=== PATIENT | female | born 1970 | race Caucasian/White ===

== ENCOUNTER 2016-09-21 19:28 | Observation (INO) | payer BC ==
[~2016-09-21] VITALS: Ht 172.7 cm; Wt 68.4 kg
[~2016-09-21 19:28] MED LIST: AMOXICILLIN500 M1 PO; ASCORBIC ACID250 MG PO; CELEXA20 MG PO; CIPRO500 MG PO; CITALOPRAM HBR20 MG PO; CLONAZEPAM0.5 MG PO; CYMBALTA60 MG PO; FLONASE16 G1 BOTH NARES; IMITREX100 MG PO; KEFLEX500 MG PO; KLONOPIN0.5 M1 PO; MOTRIN600 MG PO; MOTRIN800 MG PO; NORCO 5/3251 TABLET PO; OXYCODONE-APAP1 EACH PO; PERCOCET 5/31 TABLET PO; PYRIDIUM100 MG PO; SUDAFED 12-HOU120 MG PO; TOPAMAX50 MG PO; TRAMADOL HCL50 MG PO; TYLENOL EXTRA500 MG PO; VITAMIN B-150 MG PO; VITAMIN D-3 401 EACH PO
[2016-09-21 21:06] LABS: EOSINOPHIL (%) 2.9 % (0-5); EOSINOPHIL COUNT 0.1 K/uL (0-0.3); HEMATOCRIT 38.9 % (36.0-46.0); IMMATURE GRANULOCYTE (%) 0.2 % (0.0-0.7); IMMATURE GRANULOCYTE COUNT 0.1 K/uL; LYMPHOCYTE COUNT 0.5 K/uL (1.0-2.8); MCH 31.3 PG (29.0-34.0); MCV 89.4 FL (83-99); MEAN PLAT.VOLUME 11.2 uM^3 (9.5-12.4); MONOCYTE (%) 5.6 % (3-12); MONOCYTE COUNT 0.3 K/uL (0-0.8); NEUTROPHIL (%) 81.1 % (45-76); NEUTROPHIL COUNT 3.9 K/uL (1.8-6.4); PLATELET COUNT 195 K/uL (156-360); RBC DIS.WIDTH-CV 12.2 % (11.8-14.6); RED BLOOD COUNT 4.35 M/uL (3.80-5.20); WHITE BLOOD COUNT 4.8 K/uL (4.1-10.2)
[2016-09-21 21:09] LABS: CHLORIDE 108 mEq/L (99-109); POTASSIUM 3.9 mEq/L (3.7-5.4); SODIUM 138 mEq/L (136-147)
[2016-09-21 21:11] LABS: GLUCOSE 110 mg/dL (70-99)
[2016-09-21 21:12] LABS: ANION GAP 12 MEQ/L (2-14)
[2016-09-21 21:13] LABS: TOTAL BILIRUBIN 0.9 mg/dL (0.0-1.0)
[2016-09-21 21:14] LABS: ALKALINE PHOSPHATASE 60 IU/L (3-129); GFR ESTIMATE (CALCULATED) > 59 mL/min/
[2016-09-21 21:16] LABS: UREA NITROGEN (BUN) 9 mg/dL (9-23)
[2016-09-21 21:18] LABS: LIPASE 11 U/L (1.0-51.0)
[2016-09-21] MEDS ORDERED: GABAPENTIN300 MG PO (23:42)
[2016-09-21] MEDS ORDERED: MIRTAZAPINE15 MG PO (23:42)
[2016-09-21] MEDS ORDERED: CITALOPRAM HBR20 MG PO (23:43)
[2016-09-21] MEDS ORDERED: PROMETHAZINE HC25 M1 PO (23:43)
[2016-09-21] MEDS ORDERED: CLONAZEPAM0.5 MG PO (23:43)
[2016-09-22] VITALS (12 sets, daily range): BP systolic 85–117; BP diastolic 50–74
[2016-09-22 01:12] LABS: ADD MIUA? NO; BILIRUBIN NEGATIVE; BLOOD NEGATIVE; COLOR YELLOW ((YELLOW)); GLUCOSE (STRIP) NEGATIVE; KETONES 40; LEUKOCYTES NEGATIVE; NITRITE NEGATIVE; PH, URINE 5.5 (5-8); PROTEIN (STRIP) NEGATIVE; SPECIFIC GRAVITY 1.015 (1.000-1.030); UROBILINOGEN 0.2 MG/DL (0.2-1.0)
[2016-09-22 01:55] LABS: C DIFF TOXIN NEGATIVE (NEGATIVE)
[2016-09-22 02:14] LABS: PROBE CHECK PASS; SPECIMEN PROCESSING CONTROL PASS
[2016-09-22] MEDS ORDERED: BUTALB-APAP-CA1 EACH PO (11:35)
[2016-09-23 04:16] VITALS: BP 91/52
[2016-09-23 06:42] LABS: ANION GAP 5 MEQ/L (2-14); CHLORIDE 114 MEQ/L (99-109); GFR ESTIMATE (CALCULATED) > 59 mL/min/; GLUCOSE 72 mg/dL (70-99); POTASSIUM 3.6 MEQ/L (3.7-5.4); SAMPLE HEMOLYSIS CHECK 0; SAMPLE ICTERIC CHECK 0; SAMPLE LIPEMIA CHECK 0; SODIUM 144 MEQ/L (136-147); UREA NITROGEN (BUN) 4 mg/dL (9-23)
[2016-09-23 08:44] VITALS: BP 105/62; BP 111/69
[2016-09-23 11:29] VITALS: BP 102/65
[2016-09-23 13:32] LABS: INTERNAL CONTROL VALID? YES
[2016-09-23] MEDS ORDERED: BENTYL20 MG PO (15:36)
[2016-09-23] MEDS ORDERED: LOPERAMIDE2 MG PO (15:36)
[2016-09-23 16:00] VITALS: BP 97/59
== END 2016-09-23 17:38 | disposition home or self-care (01) ==
LOC: EME 19:28 → 5WEST 23:45 → EDOF 23:45 → 5WEST 09-22 00:50
PROVIDERS: Emergency Medicine; Physician Assistant
DX: K52.9 Noninfective gastroenteritis and colitis, unspecified (principal); R51 Headache; R11.2 Nausea with vomiting, unspecified; R07.9 Chest pain, unspecified; R42 Dizziness and giddiness; H93.293 Other abnormal auditory perceptions, bilateral
CPT/HCPCS: 71010; 74176; 80048; 80053; 81003; 83605; 83630; 83690; 84484; 84702; 85025; 87177; 87329; 87493; 87506; 99281; 99285; C9113; G0378; J1200; J1650; J1885; J2270; J2405; J2765; J7030

== ENCOUNTER 2017-04-01 09:37 | Emergency (ER) | payer BC ==
[~2017-04-01] VITALS: Ht 172.7 cm; Wt 63.0 kg
[~2017-04-01 09:37] MED LIST changes: +BENTYL20 MG PO; +BUTALB-APAP-CA1 EACH PO; +GABAPENTIN300 MG PO; +LOPERAMIDE2 MG PO; +MIRTAZAPINE15 MG PO; +PROMETHAZINE HC25 M1 PO
[2017-04-01 10:35] LABS: HEMATOCRIT 40.5 % (36.0-46.0); MCH 30.7 PG (29.0-34.0); MCHC 33.1 G/DL (30.0-36.0); MCV 92.7 FL (83-99); MEAN PLAT.VOLUME 10.9 uM^3 (9.5-12.4); PLATELET COUNT 196 K/uL (156-360); RBC DIS.WIDTH-CV 12.2 % (11.8-14.6); RBC DIS.WIDTH-SD 41.3 % (39-53); RED BLOOD COUNT 4.37 M/uL (3.80-5.20); WHITE BLOOD COUNT 7.4 K/uL (4.1-10.2)
[2017-04-01 10:45] LABS: CHLORIDE 105 mEq/L (99-109); POTASSIUM 3.6 mEq/L (3.7-5.4); SODIUM 137 mEq/L (136-147)
[2017-04-01 10:46] LABS: GLUCOSE 120 mg/dL (70-99)
[2017-04-01 10:48] LABS: ANION GAP 10 MEQ/L (2-14)
[2017-04-01 10:50] LABS: GFR ESTIMATE (CALCULATED) > 59 mL/min/
[2017-04-01 10:51] LABS: UREA NITROGEN (BUN) 10 mg/dL (9-23)
[2017-04-01 11:34] LABS: ADD MIUA? NO; BILIRUBIN NEGATIVE; BLOOD NEGATIVE; COLOR STRAW ((YELLOW)); GLUCOSE (STRIP) NEGATIVE; KETONES NEGATIVE; LEUKOCYTES NEGATIVE; NITRITE NEGATIVE; PROTEIN (STRIP) NEGATIVE; SPECIFIC GRAVITY 1.005 (1.000-1.030); UROBILINOGEN 0.2 MG/DL (0.2-1.0)
[2017-04-01] MEDS ORDERED: FIORICET 50-301 EACH PO (13:36)
[2017-04-01 13:50] VITALS: BP 110/75
== END 2017-04-01 13:51 | disposition home or self-care (01) ==
LOC: EME 09:37
PROVIDERS: Nurse Practitioner Family
DX: G43.909 Migraine, unspecified, not intractable, without status migrainosus (principal); B34.9 Viral infection, unspecified; E87.2 Acidosis; R73.9 Hyperglycemia, unspecified
CPT/HCPCS: 71020; 80048; 81003; 83605; 85027; 87040; 99281; 99285; J1200; J1885; J2765; J7030

== ENCOUNTER 2017-07-01 08:30 | Emergency (ER) | payer BC ==
[~2017-07-01] VITALS: Ht 172.7 cm; Wt 59.1 kg
[~2017-07-01 08:30] MED LIST changes: +FIORICET 50-301 EACH PO
[2017-07-01 11:35] LABS: HEMATOCRIT 34.4 % (36.0-46.0); MCH 31.2 PG (29.0-34.0); MCHC 34.6 G/DL (30.0-36.0); MCV 90.3 FL (83-99); MEAN PLAT.VOLUME 10.8 uM^3 (9.5-12.4); PLATELET COUNT 195 K/uL (156-360); RBC DIS.WIDTH-CV 12.5 % (11.8-14.6); RBC DIS.WIDTH-SD 41.5 % (39-53); RED BLOOD COUNT 3.81 M/uL (3.80-5.20); WHITE BLOOD COUNT 3.8 K/uL (4.1-10.2)
[2017-07-01 11:47] LABS: CHLORIDE 114 mEq/L (99-109); POTASSIUM 3.5 mEq/L (3.7-5.4); SODIUM 142 mEq/L (136-147)
[2017-07-01 11:49] LABS: GLUCOSE 93 mg/dL (70-99)
[2017-07-01 11:50] LABS: ANION GAP 8 MEQ/L (2-14)
[2017-07-01 11:51] LABS: TOTAL BILIRUBIN 0.5 mg/dL (0.0-1.0)
[2017-07-01 11:52] LABS: ALKALINE PHOSPHATASE 52 IU/L (3-129)
[2017-07-01 11:53] LABS: GFR ESTIMATE (CALCULATED) > 59 mL/min/
[2017-07-01 11:54] LABS: UREA NITROGEN (BUN) 9 mg/dL (9-23)
[2017-07-01 14:07] LABS: ADD MIUA? NO; BILIRUBIN NEGATIVE; BLOOD NEGATIVE; COLOR STRAW ((YELLOW)); GLUCOSE (STRIP) NEGATIVE; KETONES NEGATIVE; LEUKOCYTES NEGATIVE; NITRITE NEGATIVE; PROTEIN (STRIP) NEGATIVE; SPECIFIC GRAVITY 1.004 (1.000-1.030); UCUL ADDED? NO; UROBILINOGEN 0.2 MG/DL (0.2-1.0)
[2017-07-01 14:30] LABS: AMPHETAMINE NEGATIVE (500 ng/mL); BARBITURATES NEGATIVE (200 ng/mL); BENZODIAZEPINES NEGATIVE (150 ng/mL); COCAINE NEGATIVE (150 ng/mL); INTERNAL CONTROLS VALID? YES; METHADONE NEGATIVE (200 ng/mL); METHAMPHETAMINE NEGATIVE (500 ng/mL); OPIATES (MORPHINE) NEGATIVE (100 ng/mL); OXYCODONE NEGATIVE (100 ng/mL); PHENCYCLIDINE NEGATIVE (25 ng/mL); PROPOXYPHENE NEGATIVE (300 ng/mL); THC CANNABINOIDS NEGATIVE (50 ng/mL); TRICYCLIC ANTIDEPRESSANTS NEGATIVE (300 ng/mL)
[2017-07-01] MEDS ORDERED: MOTRIN600 MG PO (14:38)
[2017-07-01] MEDS ORDERED: ZOFRAN ODT4 MG PO (14:38)
[2017-07-01 15:08] VITALS: BP 102/59
== END 2017-07-01 15:10 | disposition home or self-care (01) ==
LOC: EME 08:30
PROVIDERS: Nurse Practitioner Family
DX: G43.909 Migraine, unspecified, not intractable, without status migrainosus (principal); R11.2 Nausea with vomiting, unspecified; H53.8 Other visual disturbances; M79.7 Fibromyalgia; F41.9 Anxiety disorder, unspecified; F32.9 Major depressive disorder, single episode, unspecified; Z88.8 Allergy status to other drugs, medicaments and biological substances
CPT/HCPCS: 70450; 80053; 81003; 85027; 99281; 99285; J1200; J1885; J2405; J2765; J3030; J7030